=== PATIENT | female | born 1995 | race Caucasian/White ===

== ENCOUNTER 2016-10-04 09:32 | Emergency (ER) | payer BC ==
[~2016-10-04] VITALS: Ht 165.1 cm; Wt 71.9 kg
[~2016-10-04 09:32] MED LIST: NOHOMEMEDS; oxyCODONE PO
[2016-10-04] MEDS ORDERED: TYLENOL WITH C1 EACH PO (14:19)
[2016-10-04 15:08] VITALS: BP 108/75
== END 2016-10-04 15:10 | disposition home or self-care (01) ==
LOC: EME 09:32
DX: M50.21 Other cervical disc displacement, high cervical region (principal); M48.02 Spinal stenosis, cervical region; R51 Headache
CPT/HCPCS: 72141; 99281; 99283; J1885; J2765; J7030

== ENCOUNTER 2017-03-28 06:30 | Day surgery (SDC) | payer BC ==
[~2017-03-28] VITALS: Ht 165.1 cm; Wt 68.0 kg
[~2017-03-28 06:30] MED LIST changes: +MOTRIN IB200 MG PO; +ONE DAILY MULT1 EACH PO; +PROBIOTIC1 EAC2 PO; +TYLENOL WITH C1 EACH PO
[2017-03-28 06:53] VITALS: BP 136/87
[2017-03-28 10:20] VITALS: BP 115/70
[2017-03-28 10:58] VITALS: BP 110/69
== END 2017-03-28 11:08 | disposition home or self-care (01) ==
LOC: SDC 06:30
PROC: 0UB98ZX Excision of Uterus, Via Natural or Artificial Opening Endoscopic, Diagnostic (ICD-10-PCS; principal; 2017-03-28)
PROC: 0UDB8ZX Extraction of Endometrium, Via Natural or Artificial Opening Endoscopic, Diagnostic (ICD-10-PCS; principal; 2017-03-28)
DX: N84.0 Polyp of corpus uteri (principal); N94.6 Dysmenorrhea, unspecified; N93.8 Other specified abnormal uterine and vaginal bleeding; F41.8 Other specified anxiety disorders; R07.9 Chest pain, unspecified
CPT/HCPCS: 88305; J0690; J1100; J1170; J1885; J2250; J2405; J3010